=== PATIENT | female | born 1955 | race Caucasian/White ===

== ENCOUNTER 2021-11-16 08:10 | Emergency (ER) | payer MEDICARE, SELFPAY ==
--- NOTE | ~2021-11-16 | XR_ITS ---
EXAMINATION: XR chest 2V DATE: 11/16/2021 08:51 INDICATION: One week of cough and fever TECHNIQUE: frontal and lateral views of the chest were obtained. COMPARISON: None FINDINGS: Elevation of the left hemidiaphragm. Airspace opacities in the right upper lobe abutting the fissures which is concerning for pneumonia. No pleural effusion or pneumothorax. The cardiomediastinal silhou ette is normal. Mild thoracic and upper lumbar spondylosis. IMPRESSION: 1. Right upper lobar opacities concerning for pneumonia. Recommend radiographic follow-up to resoluti on. Reviewed, dictated and finalized at location A. IMPRESSION: 1. Right upper lobar opacities concerning for pneumonia. Recommend radiographic follow-up to resolution.
--- NOTE | 2021-11-16 08:14 | ED.URI ---
HPI - URI/Sore Throat General Chief Complaint: Upper Respiratory Infection Stated Complaint: cough, insomnia, fever, dizziness Time Seen by Provider: 11/16/21 08:33 Source: patient, RN notes reviewed and old records reviewed Mode of arrival: ambulatory Limitations: no limitations History of Present Illness HPI Narrative: 66-year-old female presents to the [facility] with complaints of cough, fevers. Patient reports cough for 2 weeks. 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 Has tried a couple of [id number] products with no relief. Related Data Home Medications Medication Instructions Recorded Confirmed hydrochlorothiazide 12.5 mg capsule 12.5 mg PO DAILY 06/09/20 11/16/21 lisinopril 2.5 mg tablet 2.5 mg PO DAILY 06/09/20 11/16/21 lovastatin 10 mg tablet 10 mg PO DAILY 06/09/20 11/16/21 paroxetine HCl 20 mg tablet 20 mg PO DAILY 11/16/21 11/16/21 Allergies Allergy/AdvReac Type Severity Reaction Status Date / Time erythromycin base Allergy Unknown Palpitation Verified 06/09/20 13:08 s Review of Systems Review of Systems: All systems reviewed & are unremarkable except as noted in HPI and below Constitutional: Constitutional: Reports no additional constitutional complaints, Denies chills and Denies fever(s) Eyes: Eyes: Reports no additional eye complaints ENT: Reports as per HPI Cardiovascular: Cardiovascular: Reports no additional cardiovascular complaints Respiratory: Respiratory: Reports as per HPI and Reports cough Gastrointestinal: Gastrointestinal: Reports no additional gastrointestinal complaints Musculoskeletal: Musculoskeletal: Reports no additional musculoskeletal complaints Integumentary/Breasts: Skin/Breast: Reports system reviewed and no additional complaints, except as docu Neurologic: Reports system reviewed and no additional complaints, except as documented Psychiatric: Psychiatric: Reports no additional psychiatric complaints Allergic/Immunologic: Allergic/Immunologic: Reports no additional allergic/immunologic complaints [facility] Past Medical History Medical History (Updated 11/16/21 @ 09:02 by Tabatha Krause APRN) Anxiety Depression High cholesterol History of 3 spontaneous abortions Hypertension Obstructive sleep apnea Surgical History Surgical History History of 2 sections S/P breast biopsy S/P conization of cervix x2 S/P dilation and curettage x3 Total knee replacement status Family History Family History Father Hypertension Grandparent Family history of malignant neoplasm of cervix Sibling Family history of malignant neoplasm of breast in first degree relative Social History Social History Smoking status: Never smoker Second hand tobacco smoke exposure: No Alcohol intake: current Comments At the time of my signature, I reviewed and agree with the nursing past medical, surgical, social, and family history. There is no relevant family history pertinent to the patient complaint. Exam Const: General: healthy appearing, no acute distress and alert Nutritional Appearance: well nourished Orientation/consciousness: patient oriented x3 Limitations: no limitations HENMT: Head: normal to inspection Ears: external ears normal, TM's normal bilaterally and EAC's normal General nose exam: Normal external nose present and Normal nares present Face and sinus: normal facial exam Mouth: Yes Normal oral and palatal mucosa present, Yes lip normal and Yes moist mucous membranes Throat: posterior oropharynx normal and uvula midline Eyes: General: appearance normal, both eyes and all related structures Conjunctivae: conjunctivae normal Pupils: Equal, round and reactive pupils present Neck: Neck: normal visual
[2021-11-16 08:26] VITALS: BP 153/66; PULSE 94; RESP 18; TEMP 38.4; O2SAT 97
[2021-11-16 08:59] VITALS: TEMP 38.4
[2021-11-16] MEDS: ACETAMINOPHEN 500 MG TABLET 1000 MG PO (08:59)
[2021-11-16 09:10] VITALS: BP 148/96; PULSE 94; RESP 18; TEMP 38.4; O2SAT 98
== END 2021-11-16 09:10 | disposition home or self-care (01) ==
PROVIDERS: Emergency Provider Nurse Practitioner
DX: J10.00 Influenza due to other identified influenza virus with unspecified type of pneumonia (principal); Z20.822 Contact with and (suspected) exposure to COVID-19; E78.00 Pure hypercholesterolemia, unspecified; I10 Essential (primary) hypertension; G47.33 Obstructive sleep apnea (adult) (pediatric); F41.9 Anxiety disorder, unspecified; F32.A Depression, unspecified
CPT/HCPCS: 71046; 87426; 87804; 99213; A9270; C9803; G0463

== ENCOUNTER 2024-05-04 18:37 | Emergency (ER) | payer MEDICARE, SELFPAY ==
[2024-05-04] VITALS (9 sets, daily range): BP systolic 106–129; BP diastolic 60–83; PULSE 76–94; RESP 15–20; TEMP 36.8–37; O2SAT 96–99
--- NOTE | ~2024-05-04 | XR_ITS ---
CHEST RADIOGRAPH CLINICAL HISTORY: weakness, n/v . COMPARISON: 11/16/2021 TECHNIQUE: Single portable view of the chest. FINDINGS The cardiomediastinal silhouette is unremarkable. The lungs are clear. IMPRESSION: No focal infiltrate or effusion. Reviewed, dictated and finalized at location A.
--- OUTSIDE RECORDS SUMMARY | 2024-05-04 18:40 | XMS_ITS | Encounter Summary ---
Author Organization [facility] Address [address] [place] [address] Care Team Providers Care Licensed Mass Real Estate Appraiser Name Role Phone Rodrigues, Woody DO Unavailable Rodrigues, Woody DO Unavailable Rodrigues, Woody DO Primary Care Provider [phone] Reason for Referral * Radiology Services (Routine) - Pending Review Specialty Diagnoses / Procedures Referred By Contac t Referred To Contact Mammography Diagnoses Abnormal findings on diagnostic imaging of breast Procedures Mammo Right Diagnostic W Rebecca Oscar APRN-CNP [address] [place] [address] [facility] [address] [address] Referral ID Status Reason Start Date Expiration Date V isits Requested Visits Authorized [id number] Pending Review 03/15/2024 03/15/2025 1 1 Reason for Visit * Radiology Services (Routine) - Pending Review Specialty Diagnoses / Procedures Referred By Contac t Referred To Contact Mammography Diagnoses Abnormal findings on diagnostic imaging of breast Procedures Mammo Right Diagnostic W Rebecca Oscar APRN-CNP [address] [place] [address] [facility] [address] [address] Referral ID Status Reason Start Date Expiration Date V isits Requested Visits Authorized [id number] Pending Review 03/15/2024 03/15/2025 1 1 Encounter Details Date Type Department Care Team (Latest Contact Info) Description 05/03/2024 8:47 AM CDT Hospital Encounter [facility] Health Breast Care [address] [address] Rebecca Corea, SUPERVISORY TRAINING SPECIALIST-[facility] [address] [place] [address] Discharge Disposition: Home or Self Care Social History Tobacco Use Types Packs/Day Years Used Date Smoking Tobacco: Never Smokeless Tobacco: Never Alcohol Use Standard Drinks/Week Comments Not Currently 0 (1 standard drink = 0.6 oz pur e alcohol) 12 drinks a year PHQ-2 Answer Date Recorded Patient Health Questionnaire-2 Score 0 03/02/2024 Sex and Gender Information Value Date Recorded Sex Assigned at Not on file Gender Identity Not on file Sexual Orientation Not on file documented as of this encounter Medications at Time of Discharge Medication Sig Dispensed Refills Start Date End Date CPAP Use as directed diclofenac sodium EC (Voltaren) 75 MG tablet Take 1 (one) tablet by mouth as needed folic acid (Folvite) 1 MG tablet Take 1 (one) tablet by mouth once daily 02/02/2024 hydroCHLOROthiazide (Hydrodiuril) 25 MG tabletIndications:Essenti al hypertension Take 1 (one) tablet by mouth once daily 90 tablet 1 03/02/2024 hydroxychloroquine (Plaquenil) 200 MG tablet Take 1 (one) tablet by mouth once daily 01/19/2024 hydrOXYzine HCl (Atarax) 50 MG tabletIndications:FOZIA (generalized anxiety disorder) Take 1 (one) tablet by mouth once daily as needed (Anxiety) 30 tablet 04/29/2024 lisinopril (Prinivil; Zestril) 10 MG tabletIndications:Essenti al hypertension Take 1 (one) tablet by mouth once daily 90 tablet 1 03/02/2024 lovastatin (Mevacor) 10 MG tabletIndications:Hyperch olesterolemia Take 1 (one) tablet by mouth at bedtime 90 tablet 1 03/02/2024 methotrexate 2.5 MG tablet Take 1 (one) tablet by mouth once 02/23/2024 PARoxetine (Paxil) 20 MG tabletIndications:FOZIA (generalized anxiety disorder) Take 0.5 (one-half) tablet by mouth once daily 90 tablet 1 03/05/2024 predniSONE (Deltasone) 5 MG tablet Take 1 (one) tablet by mouth once daily 02/28/2024 documented as of this encounter Plan of Treatment Upcoming Encounters Date Type Department Care Team (Late st Contact Info) Description 05/06/2024 3:20 PM CDT Office Visit [facility] [address] [place] [address] ChachoIsa Debbie, SUPERVISORY TRAINING SPECIALIST-[employer] [address] [place] [phone] 08/17/2024 1:00 PM CDT Office Visit [facility] [address] [place] [address] Woody Rodrigues DO [address] [place] [phone] documented as of this encounter Procedures Procedure Name Priority Date/Time Associated Diagnosis Comments MAMMO RIGHT DIAGNOSTIC W JAYLA Routine 05/03/2024 9:16 AM CDT Abnormal findings on diagnostic imaging of breast documented in this encounter Results * Mammo Right Diagnostic W Jayla (05/03/2024 9:16 AM CDT) Anatomical Region Laterality Modality Breast Right Mammography 05/03/2024 9:30 AM CDT Impressions 05/03/2024 3:03 PM CDT IMPRESSION: Screen detected right breast focal asymmetry represents a benign cluster of cysts. OVERALL FINAL ASSESSMENT: BI-RADS Category 2: Benign. Annual screening mammography is recommended. > Interpreting Provider: Jerzy Qureshi MD on 05/03/2024 3:03 PM Narrative 05/03/2024 3:03 PM CDT EXAMINATION: RIGHT UNILATERAL DIGITAL DIAGNOSTIC MAMMOGRAM AND DIGITAL BREAST TOMOSYNTHESIS; RIGHT BREAST SONOGRAM HISTORY: 68 year-old asymptomatic woman presents for evaluation of screening detected right breast focal asymmetry. COMPARISON: Comparison is made to mammograms dating back to 2014. TECHNIQUE: Full field digital mammographic views of the RIGHT breast were performed, including computer aided detection (CAD) and digital breast tomosynthesis (DBT). Directed ultrasound evaluation of the RIGHT breast was performed by a trained security operations manager and by Dr. Qureshi. BREAST PARENCHYMAL COMPOSITION: There are scattered areas of fibroglandular density. MAMMOGRAM FINDINGS: Additional views of the right breast were obtained which confirm the presence of a subtle focal asymmetry in the outer right breast at middle to posterior depth. There is no suspicious mass, architectural distortion, or calcification. SONOGRAM FINDINGS: Ultrasound evaluation of the outer right breast is performed. At the 9:00 position 11 cm from the nipple, there is a 9 mm benign cluster of cysts. This corresponds to the focal asymmetry seen mammographically. There is no suspicious cystic or solid mass in the visualized right breast there is a benign lymph node at the 10:00 position 11 cm from the nipple. Rebecca Corea SUPERVISORY TRAINING SPECIALIST-[employer] MAMMO ORDERAB LES documented in this encounter Visit Diagnoses Diagnosis Abnormal findings on diagnostic imaging of breast Other (abnormal) findings on radiological examination of breast documented in this encounter Care Teams Licensed [employer] Real Estate Appraiser Relationship Specialty Start Date End Date Woody Rodrigues DO [address] [place] [phone] PCP - Attributed-[facility] 12/19/23 Woody Rodrigues DO [address] [place] [address] PCP - Attributed-[facility] P4P 01/18/24 Woody Rodrigues DO [address] [place] [address] PCP - General Family Medicine 03/02/24 documented as of this encounter
--- OUTSIDE RECORDS SUMMARY | 2024-05-04 18:40 | XMS_ITS | Encounter Summary ---
Author Organization [facility] Address [address] [place] [address] Care Team Providers Care Front Maker Lockstitch Name Role Phone Rodrigues, Woody DO Unavailable Rodrigues, Woody DO Unavailable Rodrigues, Woody DO Primary Care Provider [phone] Reason for Referral * Radiology Services (Routine) - Pending Review Specialty Diagnoses / Procedures Referred By Contac t Referred To Contact Ultrasound Diagnoses Abnormal findings on diagnostic imaging of breast Procedures US BREAST RIGHT LTD Rebecca Corea APRN-DEHYDRATOR [address] [place] [address] [facility] [address] [place] [id number] Referral ID Status Reason Start Date Expiration Date V isits Requested Visits Authorized [id number] Pending Review 03/15/2024 03/15/2025 1 1 Reason for Visit * Radiology Services (Routine) - Pending Review Specialty Diagnoses / Procedures Referred By Conthollie t Referred To Contact Ultrasound Diagnoses Abnormal findings on diagnostic imaging of breast Procedures US BREAST RIGHT LTD Rebecca Corea APRN-DEHYDRATOR [address] [place] [address] [facility] [address] [facility] [address] [place] [address] Referral ID Status Reason Start Date Expiration Date V isits Requested Visits Authorized [id number] Pending Review 03/15/2024 03/15/2025 1 1 Encounter Details Date Type Department Care Team (Latest Contact Info) Description 05/03/2024 8:48 AM CDT - 05/03/2024 11:59 PM CDT Hospital Encounter [facility] Imaging Services - Ultrasound [address] [facility] [address] [place] [address] Rebecca Corea, COMMUNICATIONS OFFICER-DEHYDRATOR [address] [place] [address] Discharge Disposition: Home or Self Care Social [...] Description 05/06/2024 3:20 PM CDT Office Visit [facility] [address] [place] [address] Isa Flor Debbie, COMMUNICATIONS OFFICER-DEHYDRATOR [address] [place] [address] 08/17/2024 1:00 PM CDT Office Visit [facility] [address] [place] [address] Woody Rodrigues DO [address] [place] [phone] documented as of this encounter Procedures Procedure Name Priority Date/Time Associated Diagnosis Comments US BREAST RIGHT LTD Routine 05/03/2024 1 0:01 AM CDT Abnormal findings on diagnostic imaging of breast documented in this encounter Results * US BREAST RIGHT LTD (05/03/2024 10:01 AM CDT) Anatomical Region Laterality Modality Breast Right Ultrasound 05/03/2024 9:30 AM CDT Impressions 05/03/2024 3:03 [...] RIGHT breast was performed by a trained trip follower and by Dr. Qureshi. BREAST PARENCHYMAL COMPOSITION: [...] 11 cm from the nipple. Rebecca Corea COMMUNICATIONS OFFICER-DEHYDRATOR US ORDERABLES documented in this encounter Visit Diagnoses Diagnosis Abnormal findings on diagnostic imaging of breast Other (abnormal) findings on radiological examination of breast documented in this encounter Care Teams Front Maker Lockstitch Relationship Specialty Start Date End Date Woody Rodrigues DO [address] [place] [phone] PCP - Attributed-[facility] 12/19/23 Woody Rodrigues DO [address] [place] [address] PCP - Attributed-[facility] P4P 01/18/24 Woody Rodrigues DO [address] [place] [address] PCP - General Family Medicine 03/02/24 documented as of this encounter
--- OUTSIDE RECORDS SUMMARY | 2024-05-04 18:40 | XMS_ITS | Patient Health Record ---
Author Organization [facility] Address [address] [place], [place] [address] Care Team Providers Care Divider Operator Name Role Phone Ciro Back Primary Care Provider Ciro Back MD [phone] ALLERGIES Allergen (clinical drug ingredient) Drug/Non Drug Allergy documented on EMR Reaction Allergy Type Onset Date Status erythromycin Erythromycin Unknown Drug Allergy A ctive REASON FOR REFERRAL No Information MEDICATIONS Medication SIG (Take, Route, Fr equency, Duration) Notes Start Date End Date Status PARoxetine HCl Activ e hydroCHLOROthiazide Active Lisinopril Active Lovastatin Active SOCIAL HISTORY Sex Assigned At : Social History Observation Description Sex Assigned At Unknown PROBLEMS Problem Type ICD Code Onset Dates Problem Status W/U Status Risk SNOMED Code Notes Problem Bilateral primary osteoarthritis of knee (M17.0) Active confirmed Osteoarthritis of knee (227921124) Problem Primary osteoarthritis of knees, bilateral (M17.0) Active confirmed Bilateral arthritis of knees (5302767173471912) Problem Primary osteoarthritis of right knee (M17.11) Active confirmed Osteoarthritis of knee (018540771) Problem Unilateral primary osteoarthritis, right knee (M17.11) Active confirmed Primary osteoarthritis (365010304) Problem Aftercare following joint replacement surgery (Z47.1) Active confirmed History of musculoskeletal operation (337357994) Problem Presence of total right knee joint prosthesis (Z96.651) Active confirmed 963829943145 Problem Unilateral primary osteoarthritis, left knee (M17.12) Active confirmed 586413751168915 Problem Primary osteoarthritis of left knee (M17.12) Active confirmed 544591721 Problem Primary osteoarthritis of left hip (M16.12) Active confirmed Localized, primary osteoarthritis of the pelvic region and thigh (993899996) PLAN OF TREATMENT Pending Test Test Name Order Date X ray : Knee, left 3 views 04/28/2017 X ray : Knee, left 3 views 03/22/2015 X ray : Knee, right 3 views 09/10/2017 X ray : Knee, right 3 views 11/10/2017 X ray : Knee, right 3 views 03/22/2015 X ray : Knee, right 3 views 04/28/2017 Insurance Providers Payer Name Payer Address Payer Phone Subscriber Number Group Number Insured Name Patient Relationship to Insured Coverage Start Date Coverage End Date [facility] [address] [address] [place] [address] [id number] Vaishnavi Morataya Self - patient is the insured MEDICATIONS ADMINISTERED Medication Instructions Date of Administration Dosage Notes Betamethasone/ sodium phosphate 6mg 03/22/2015 R KNEE Betamethasone/ sodium phosphate 6mg 03/22/2015 L KNEE Betamethasone/ sodium phosphate 6mg 09/20/2015 R KNEE Betamethasone/ sodium phosphate 6mg 09/20/2015 Betamethasone/ sodium phosphate 6mg 12/20/2015 R KNEE Betamethasone/ sodium phosphate 6mg 12/20/2015 L KNEE Betamethasone/ sodium phosphate 6mg 04/26/2016 Bilateral Knees R/L Betamethasone/ sodium phosphate 6mg 07/17/2016 Betamethasone/ sodium phosphate 6mg 07/17/2016 Betamethasone/ sodium phosphate 6mg 04/28/2017 Betamethasone/ sodium phosphate 6mg 04/28/2017 Betamethasone/ sodium phosphate 6mg 11/10/2017 Betamethasone/ sodium phosphate 6mg 02/02/2018 Betamethasone/ sodium phosphate 6mg 05/04/2018 Betamethasone/ sodium phosphate 6mg 10/10/2020 Betamethasone/ sodium phosphate 6mg 01/18/2021 Betamethasone/ sodium phosphate 6mg 08/28/2021 Betamethasone/ sodium phosphate 6mg 07/10/2022 MEDICAL (GENERAL) HISTORY Surgical History Surgery Date(Month/Year) section 1991, 1995 dilatation and curettage 1989,94,95 Hospitalization History Reason Date(Month/Year) Same as surgeries Same as surgical history
--- OUTSIDE RECORDS SUMMARY | 2024-05-04 18:40 | XMS_ITS | Clinical Summary ---
Author Organization [facility] Address [address] [place] [address] Care Team Providers Care Field Kiln Burner Name Role Phone Rodrigues, Woody DO Unavailable Rodrigues, Woody DO Unavailable Rodrigues, Woody DO Primary Care Provider [phone] Source Comments [facility],non-owned Affiliates and Associated Physician Practices is amultiple site organization consisting of ambulatory clinics and hospital sitesin [place], [place], [place] and [place]. This disclosure is being madepursuant to the Care Everywhere program and may not contain all information available regarding this patient. Last updated 17.[facility] Allergies Active Allergy Reactions Criticality Noted Date Comments Erythromycin Nausea and/or Vomiting 08/19/2013 Medications * Be aware that medications may not be up to date on this document. Alwaysverify current medications with the patient. Medication Sig Dispensed Refills Start Date End Date Status diclofenac sodium EC (Voltaren) 75 MG tablet Take 1 (one) tablet by mouth as needed Active CPAP Use as directed Active folic acid (Folvite) 1 MG tablet Take 1 (one) tablet by mouth once daily 02/02/2024 Active hydroxychloroquine (Plaquenil) 200 MG tablet Take 1 (one) tablet by mouth once daily 01/19/2024 Active methotrexate 2.5 MG tablet Take 1 (one) tablet by mouth once 02/23/2024 Active predniSONE (Deltasone) 5 MG tablet Take 1 (one) tablet by mouth once daily 02/28/2024 Active lisinopril (Prinivil; Zestril) 10 MG tabletIndications:Ess ential hypertension Take 1 (one) tablet by mouth once daily 90 tablet 1 03/02/2024 Active hydroCHLOROthiazide (Hydrodiuril) 25 MG tabletIndications:Ess ential hypertension Take 1 (one) tablet by mouth once daily 90 tablet 1 03/02/2024 Active lovastatin (Mevacor) 10 MG tabletIndications:Hyp ercholesterolemia Take 1 (one) tablet by mouth at bedtime 90 tablet 1 03/02/2024 Active PARoxetine (Paxil) 20 MG tabletIndications:FOZIA (generalized anxiety disorder) Take 0.5 (one-half) tablet by mouth once daily 90 tablet 1 03/05/2024 Active hydrOXYzine HCl (Atarax) 50 MG tabletIndications:FOZIA (generalized anxiety disorder) Take 1 (one) tablet by mouth once daily as needed (Anxiety) 30 tablet 04/29/2024 Active Active Problems Problem Noted Date Diagnosed Date FOZIA (generalized anxiety disorder) 03/03/2024 Essential hypertension 03/03/2024 Hypercholesterolemia 03/03/2024 Arthritis of both knees 03/02/2024 Prediabetes 03/02/2024 Obesity, morbid 03/02/2024 SLE (systemic lupus erythematosus related syndro me) 12/29/2023 Primary osteoarthritis of left knee 04/23/2023 Encounters Date Type Department Care Team Description 05/04/2024 Travel 05/04/2024 Telephone [facility] - Family Medicine [address] [place] [address] Bertha Pisano, MARCEL Cough; Medication Problem 05/03/2024 8:48 AM CDT - 05/03/2024 11:59 PM CDT Hospital Encounter [facility] Imaging Services - Ultrasound [address] [place] [address] [address] [place] [address] Rebecca Corea, POWER LINEMAN-ASSISTANT THERAPY AIDE Discharge Disposition: Home or Self Care 05/03/2024 8:47 AM CDT Hospital Encounter [facility] Breast Care [address] [place] [address] [address] [place] [address] Rebecca Corea, POWER LINEMAN-ASSISTANT THERAPY AIDE Discharge Disposition: Home or Self Care 04/29/2024 Orders Only [facility] [address] [place] [address] Woody Rodrigues DO FOZIA (generalized anxiety disorder) 04/29/2024 Telephone [facility] [address] [place] [address] Woody Rodrigues DO Anxiety 03/24/2024 Patient Outreach [facility] - Care Coordination [address] [place] [address] Raya Tenorio Outreach Preventive Care 03/12/2024 2:57 PM ELECTRIC MOTOR ASSEMBLER AND TESTER - 03/12/2024 11:59 PM ELECTRIC MOTOR ASSEMBLER AND TESTER Hospital Encounter [facility] Breast Care [address] [facility] [address] [place] [address] Discharge Disposition: Home or Self Care 03/12/2024 2:57 PM ELECTRIC MOTOR ASSEMBLER AND TESTER - 03/12/2024 11:59 PM ELECTRIC MOTOR ASSEMBLER AND TESTER Hospital Encounter [facility] Breast Care [address] [facility] [address] [place] [address] Discharge Disposition: Home or Self Care 03/12/2024 2:56 PM ELECTRIC MOTOR ASSEMBLER AND TESTER Hospital Encounter [facility] Imaging Services - Radiology [address] [facility] [address] [place] [address] Discharge Disposition: Home or Self Care 03/05/2024 Orders Only [facility] [address] [place] [address] Woody Rodrigues DO FOZIA (generalized anxiety disorder) 03/05/2024 Telephone [facility] [address] [place] [address] Woody Rodrigues DO Medication Problem 03/02/2024 2:20 PM ELECTRIC MOTOR ASSEMBLER AND TESTER Office Visit [facility] [address] [place] [address] Woody Rodrigues DO Annual physical exam (Primary Dx); Prediabetes; Obesity, morbid (HCC); Systemic lupus erythematosus, unspecified SLE type, unspecified organ involvement status (HCC); Essential hypertension; Hypercholesterolemi a; FOZIA (generalized anxiety disorder) from Last 3 Months Immunizations Name Administration Dates Next Due INFLUENZA VACCINE, TRIV. (AF LURIA, FLUZONE TRIVALENT; 6MO+) (IIV3) 02/14/2012 Covid Pfizer primary monovalent 12+ yr 0.3mL Pur ple cap 11/15/2020 INFLUENZA VACCINE, HIGH-DOSE , QUADR. (FLUZONE HIGH-DOSE QUADRIVALENT; 65Y+), 0.7 ML (HD-IIV4) 11/24/2020 INFLUENZA VACCINE, QUADR. (F LUZONE; FLULAVAL; FLUARIX; AFLURIA QUADRIVALENT; 6MO+), 0.5 ML (IIV4) 11/07/2019 Family History Medical History Relation Name Comments Cancer - Breast Cousin Cancer - Breast Sister Relation Name Status Comments Cousin Sister Alive Social History Tobacco Use Types Packs/Day Years [...] on file Sexual Orientation Not on file Last Filed Vital Signs Vital Sign Reading Time Taken Comments Blood Pressure 100/62 03/02/2024 2:36 PM ELECTRIC MOTOR ASSEMBLER AND TESTER Pulse 74 03/02/2024 2:36 PM ELECTRIC MOTOR ASSEMBLER AND TESTER Temperature 36.6 C (97.9 F) 03/02/2024 2:36 PM ELECTRIC MOTOR ASSEMBLER AND TESTER Respiratory Rate 18 08/19/2013 12:58 PM CDT Oxygen Saturation 98% 03/02/2024 2:36 PM ELECTRIC MOTOR ASSEMBLER AND TESTER Inhaled Oxygen Concentration - - Weight 103 kg (227 lb) 03/12/2024 3:08 PM ELECTRIC MOTOR ASSEMBLER AND TESTER Height 162.6 cm (5' 4 ) 03/12/2024 3:08 PM ELECTRIC MOTOR ASSEMBLER AND TESTER Body Mass Index 38.96 03/12/2024 3:08 PM ELECTRIC MOTOR ASSEMBLER AND TESTER Plan of Treatment Upcoming Encounters Date Type Department Care Team (Late st Contact Info) Description 05/06/2024 3:20 PM CDT Office Visit [facility] - Family Medicine [address] [place] [address] Isa Flor, POWER LINEMAN-ASSISTANT THERAPY AIDE [address] [place] [phone] 08/17/2024 1:00 PM CDT Office Visit [facility] - Family Medicine [address] [place] [address] RodriguesWoody hammond DO [address] [place] [address] Health Maintenance Due Date Last Done Comments COLOGUARD (AGES 45-75) - COLON CA SCREENING [address] COLONOGRAPHY - COLON CA SCREENING 1955 FIT - COLON CA SCREENING 1955 FLEX SIG - COLON CA SCREENING 1955 HEPATITIS C SCREENING 05/06/1973 DTAP/TDAP/TD VACCINES (1 - Tdap) 05/10/1974 PNEUMOCOCCAL VACCINE 50+ (1 of 1 - PCV) 05/10/2005 ZOSTER VACCINE (1 of 2) 05/10/2005 COVID-19 VACCINE (4 - season) 2023 11/15/2020, 04/28/2020, 04/07/2020 INFLUENZA VACCINE (#1) 2023 , 11/07/2019, 02/14/2012 MEDICARE AWV CALENDAR YEAR 2024 MAMMOGRAM 03/12/2026 03/12/2024, 06/2023, 10/05/2021, Additional history exists SCREENING FOR DIABETES 03/02/2027 03/02/2024, 2024 Respiratory Syncytial Virus (RSV) Vaccine Pt: or over 60 yrs (1 - 1-dose 75+ series) 05/10/2030 COLONOSCOPY - COLON CA SCREENING 08/07/2031 08/06/2021 Colorectal Cancer Screening 08/07/2031 DEPRESSION SCREENING Completed 03/02/2024, 04/21/19 BONE DENSITY TESTING Completed 03/12/2024, 08/09/2013, 02/29/2008 HEPATITIS B VACCINE Aged Out No longe r eligible based on patient's age to complete this topic HIB VACCINE Aged Out No longer eligi ble based on patient's age to complete this topic HPV VACCINE Aged Out No longer eligi ble based on patient's age to complete this topic MENINGOCOCCAL (Group B) VACCINE SHARED DECISION-MAKING Aged Out No longer eligible based on patient's age to complete this topic MENINGOCOCCAL GROUPS A/C/Y/W VACCINE Aged Out No longer eligible based on patient's age to complete this topic Procedures Procedure Name Priority Date/Time Associated Diagnosis Comments US BREAST RIGHT LTD Routine 05/03/2024 1 0:01 AM CDT Abnormal findings on diagnostic imaging of breast MAMMO RIGHT DIAGNOSTIC W RILEY Routine 05/03/2024 9:16 AM CDT Abnormal findings on diagnostic imaging of breast DEXA BONE DENSITY AXIAL SKELETON Routine 03/12/2024 3:51 PM ELECTRIC MOTOR ASSEMBLER AND TESTER Asymptomatic postmenopausal status XR CHEST 2VW Routine 03/12/2024 3:36 PM ELECTRIC MOTOR ASSEMBLER AND TESTER Lumbar pain Systemic lupus erythematosus (SLE) in adult (HCC) Ankylosing spondylitis, unspecified site of spine (HCC) High risk medications (not anticoagulants) long-term use MAMMO BILAT SCREENING W RILEY Routine 03/12/2024 3:10 PM ELECTRIC MOTOR ASSEMBLER AND TESTER Encounter for screening mammogram for breast cancer TSH REFLEX FREE T4 Routine 03/02/2024 3: 26 PM ELECTRIC MOTOR ASSEMBLER AND TESTER Annual physical exam HEMOGLOBIN A1C Routine 03/02/2024 3:26 PM ELECTRIC MOTOR ASSEMBLER AND TESTER Annual physical exam LIPID PROFILE Routine 03/02/2024 3:26 PM ELECTRIC MOTOR ASSEMBLER AND TESTER Annual physical exam COMPREHENSIVE METABOLIC PANEL Routine 03/02/2024 3:26 PM ELECTRIC MOTOR ASSEMBLER AND TESTER Annual physical exam CBC W AUTO DIFFERENTIAL Routine 03/02/2024 3:26 PM ELECTRIC MOTOR ASSEMBLER AND TESTER Annual physical exam from Last 3 Months Results * US BREAST RIGHT LTD (05/03/2024 [...] RIGHT breast was performed by a trained warehouse representative and by Dr. Qureshi. BREAST PARENCHYMAL COMPOSITION: [...] 11 cm from the nipple. Rebecca Corea POWER LINEMAN-ASSISTANT THERAPY AIDE US ORDERABLES * Mammo Right Diagnostic W Riley (05/03/2024 9:16 AM CDT) Anatomical Region Laterality [...] RIGHT breast was performed by a trained warehouse representative and by Dr. Qureshi. BREAST PARENCHYMAL COMPOSITION: [...] 11 cm from the nipple. Rebecca Corea POWER LINEMAN-ASSISTANT THERAPY AIDE MAMMO ORDERAB LES * DEXA BONE DENSITY AXIAL SKELETON (03/12/2024 3:51 PM ELECTRIC MOTOR ASSEMBLER AND TESTER) Anatomical Region Laterality Modality Mammography 03/12/2024 4:08 PM ELECTRIC MOTOR ASSEMBLER AND TESTER Narrative 03/12/2024 4:09 PM ELECTRIC MOTOR ASSEMBLER AND TESTER BONE MINERAL DENSITY STUDY INDICATION: Ovarian failure FINDINGS: The average bone mineral density from L1 to L4 is 1.545 g/cm2. T-score is 2.8 which is the standard deviations (SD) of the mean for the young adult. The Z-score is 3.3 which is the standard deviations for the mean for age matched control. The average bone mineral density of the totalright neck hip is 1.020 g/cm2. T-score is -0.1. Z-score is 0.8 The 10 year probability of fracture major osteoporotic: 6.4%. Hip: 0.3%.. ASSESSMENT: The above findings represent no significant increased risk of fracture through the spine and femur. WORLD HEALTH ORGANIZATION DEFINITIONS OSTEOPENIA = -1 TO -2.5 SD BELOW T-SCORE OSTEOPOROSIS = LESS THAN -2.5 SD BELOW T-SCORE 1. No significant- < 1 SD below T score 2. Mild - 1 -2.0 SD below T-score 3. Moderate - 2 -2.5 SD below T-score 4. Significant - > 2.5 SD below T-score > Interpreting Provider: Jasson Altamirano MD on 03/12/2024 4:09 PM Procedure Note Jasson Altamirano MD - 03/12/2024 BONE MINERAL DENSITY STUDY INDICATION: Ovarian failure FINDINGS: The average bone mineral density from L1 to L4 is 1.545 g/cm2. T-scoreis 2.8 which is the standard deviations (SD) of the mean for the youngadult. The Z-score is 3.3 which is the standard deviations for the mean forage matched control. The average bone mineral density of the totalright neck hip is 1.020g/cm2. T-score is -0.1. Z-score is 0.8 The 10 year probability of fracture major osteoporotic: 6.4%. Hip: 0.3%.. ASSESSMENT: The above findings represent no significant increased riskof fracture through the spine and femur. WORLD HEALTH ORGANIZATION DEFINITIONS OSTEOPENIA = -1 TO -2.5 SD BELOW T-SCORE OSTEOPOROSIS = LESS THAN -2.5 SD BELOW T-SCORE 1. No significant- < 1 SD below T score 2. Mild - 1 -2.0 SD below T-score 3. Moderate - 2 -2.5 SD below T-score 4. Significant - > 2.5 SD below T-score > Interpreting Provider: Jasson Altamirano MD on 03/12/2024 4:09 PM Rebecca Corea POWER LINEMAN-ASSISTANT THERAPY AIDE DEXA ORDERABL ES * XR Chest 2Vw (03/12/2024 3:36 PM ELECTRIC MOTOR ASSEMBLER AND TESTER) Anatomical Region Laterality Modality Chest Radiographic Nella ging 03/12/2024 3:44 PM ELECTRIC MOTOR ASSEMBLER AND TESTER Impressions 03/12/2024 3:44 PM ELECTRIC MOTOR ASSEMBLER AND TESTER IMPRESSION: No acute cardiopulmonary abnormalities. > Interpreting Provider: Gissel Ogden MD on 03/12/2024 3:44 PM Narrative 03/12/2024 3:44 PM ELECTRIC MOTOR ASSEMBLER AND TESTER PROCEDURE: XR CHEST 2VW DATE/TIME OF EXAM: 03/12/2024 3:36 PM CLINICAL INFORMATION: None relevant/not provided if blank. Indication: M54.50: Low back pain, unspecified M32.9: Systemic lupus erythematosus, unspecified ([facility]) M45.9: Ankylosing spondylitis of unspecified sites in spine ([facility]) Z79.899: Other terminal operations supervisor (current) drug therapy Additional History: COMPARISON: None. FINDINGS: Examination of the chest in PA and lateral views fails to reveal evidence of active infiltration or consolidation in either lung and there is no effusion or pneumothorax. The heart, aorta and diaphragm, and other mediastinal structures are normal in size, shape and position. The bony structures are unremarkable. Procedure Note Gissel Ogden MD - 03/12/2024 PROCEDURE: XR CHEST 2VW DATE/TIME OF EXAM: 03/12/2024 3:36 PM CLINICAL INFORMATION: None relevant/not provided if blank. Indication: M54.50: Low back pain, unspecified M32.9: Systemic lupus erythematosus, unspecified ([facility]) M45.9: Ankylosing spondylitis of unspecified sites in spine ([facility]) Z79.899: Other intermediate (current) drug therapy Additional History: COMPARISON: None. FINDINGS: Examination of the chest in PA and lateral views fails to revealevidence of active infiltration or consolidation in either lung and there is no effusion or pneumothorax. The heart, aorta and diaphragm, and other mediastinal structures are normal in size, shape and position. The bony structures are unremarkable. IMPRESSION: No acute cardiopulmonary abnormalities. > Interpreting Provider: Gissel Ogden MD on 03/12/2024 3:44 PM Lisa Garcia POWER LINEMAN-ASSISTANT THERAPY AIDE DIAGNOSTIC IMAG ING ORDERABLES * Mammo Bilat Screening W Riley (03/12/2024 3:10 PM ELECTRIC MOTOR ASSEMBLER AND TESTER) Anatomical Region Laterality Modality Breast Bilateral Mammography 03/12/2024 3:58 PM ELECTRIC MOTOR ASSEMBLER AND TESTER Impressions 03/12/2024 4:06 PM ELECTRIC MOTOR ASSEMBLER AND TESTER IMPRESSION: Question right breast focal asymmetry ASSESSMENT: BIRADS Category 0: Incomplete - Needs additional imaging evaluation. RECOMMENDATION: Right breast diagnostic mammography and possible targeted ultrasound. Thank you for allowing us to participate in the care of your patient. [facility] utilizes [employer] as a reminder system to notify patients of their next recommended mammogram. > Interpreting Provider: Isa Delvalle MD on 03/12/2024 4:06 PM Narrative 03/12/2024 4:06 PM ELECTRIC MOTOR ASSEMBLER AND TESTER EXAMINATION: Digital screening mammogram. Low-dose full-field digital breast tomosynthesis examination was performed with synthetic 2D images. Computer assisted detection was utilized. DATE: 03/12/2024 3:12 PM PRIOR: 2023 and prior mammograms dating back to 2020. BREAST PARENCHYMAL DENSITY: There are scattered areas of fibroglandular density. FINDINGS: No suspicious masses, areas of architectural distortion or microcalcifications are evident on synthetic 2D mammogram or tomosynthesis images in the left breast. There is a question focal asymmetry in the superficial outer right breast at mid depth approximately 10 cm from the nipple on CC slice 27 and MLO slice 7. Rebecca Corea POWER LINEMAN-ASSISTANT THERAPY AIDE MAMMO ORDERAB LES * TSH REFLEX FREE T4 (03/02/2024 3:26 PM ELECTRIC MOTOR ASSEMBLER AND TESTER) TSH 1.561 0.350 - 4.940 uIU/mL [facility] ACCOUNT BILL Blood BLOOD SPECIMEN / Unknown 03/02/2024 3:26 PM ELECTRIC MOTOR ASSEMBLER AND TESTER 03/02/2024 Narrative [facility] ACCOUNT BILL - 03/02/2024 11:06 PM ELECTRIC MOTOR ASSEMBLER AND TESTER Performed at: [address] [place] [address] [address] [place], [place] [id number] General House Worker: Dequan Toussaint [facility], Phone: [phone] Woody Rodrigues DO LAB - CHEMISTRY MAICO GERARD [facility] ACCOUNT BILL [address] [place] [address] * HEMOGLOBIN A1C (03/02/2024 3:26 PM ELECTRIC MOTOR ASSEMBLER AND TESTER) Hemoglobin A1c 5.6 <5.7 % [facility] ACCOUNT BILL Comment: AVERAGE GLUCOSE MG/DL BLOOD 114 mg/dL HbA1c Interpretation: Normal: < 5.7% Pre-diabetes: 5.7-6.4% Diabetes: Equal to or greater than 6.5% Test results diagnostic of diabetes should be repeated for c onfirmation. Treatment target values recommended by ADA and other clinica l organizations should be used to evaluate metabolic control in patients. This test should not replace glucose testing for patients wi th Type 1 diabetes, pediatric patients, or women. Falsely low HbA1c results may be observed in patients with c linical conditions that shorten erythrocyte life span or dec rease mean erythrocyte age such as the presence of unstable hemoglobin variants, elevated hemoglobin F level or other ca uses of hemolytic anemia. HbA1c may not accurately reflect glycemic control when clinical conditions that affect erythr ocyte survival are present. Severe Iron deficiency anemia m ay yield falsely high results. Hemoglobin A1c assay should not be used to diagnose or monitor diabetes in patients with malignancy, recent blood transfusion, chronic kidney or keaton er disease. This method may yield falsely low results when hemoglobin (HbF) exceeds 5% in the specimen. The [employer] Alinity assay for the measurement of HbA1c is a [facility] Glycohemoglobin Standardization Program (NGSP) certi fied method. Blood BLOOD SPECIMEN / Unknown 03/02/2024 3:26 PM ELECTRIC MOTOR ASSEMBLER AND TESTER 03/02/2024 Narrative [facility] ACCOUNT BILL - 03/02/2024 11:06 PM ELECTRIC MOTOR ASSEMBLER AND TESTER Performed at: [address] [place] [address] , [place], [place] [id number] General House Worker: Dequan Toussaint [facility], Phone: [phone] Woody Rodrigues DO LAB - CHEMISTRY MAICO GERARD [facility] ACCOUNT BILL [address] [place] [address] * (ABNORMAL) CBC WITH DIFFERENTIAL (03/02/2024 3:26 PM ELECTRIC MOTOR ASSEMBLER AND TESTER) WBC 3.3(L) 4.0 - 10.7 x10E9/L [facility] ACCOUNT BILL RBC 4.02 3.90 - 5.20 x10E12/L [facility] ACCOUNT BILL Hemoglobin 11.1(L) 11.9 - 15.8 g/dL [facility] ACCOUNT BILL Hematocrit 35.0 34.8 - 46.1 % [facility] ACCOUNT BILL MCV 87.1 80.0 - 98.0 fL [facility] ACCOUNT BILL MCH 27.6 26.7 - 33.6 pg [facility] ACCOUNT BILL MCHC 31.7 31.7 - 36.3 g/dL [facility] ACCOUNT BILL RDW 14.0 11.3 - 14.8 % [facility] ACCOUNT BILL Platelet Count 218 150 - 420 x10E9/L [facility] ACCOUNT BILL Comment:MPV (CS) 9.1 fL 7.8- 11.4 Granulocytes % 38.5(L) 41.0 - 74.0 % [facility] ACCOUNT BILL Lymphocytes % 43.7 17.0 - 47.0 % [facility] ACCOUNT BILL Monocytes % 13.8(H) 3.0 - 11.0 % [facility] ACCOUNT BILL Eosinophils % 2.5 0.0 - 7.0 % [facility] ACCOUNT BILL Basophils % 1.2 0.0 - 1.6 % [facility] ACCOUNT BILL Granulocytes Absolute 1.25(L) 1.60 - 7.50 x10E9/L [facility] ACCOUNT BILL Lymphocytes Absolute 1.42 1.00 - 4.40 x10E9/L [facility] ACCOUNT BILL Monocytes Absolute 0.45 0.15 - 1.00 x10E9/L [facility] ACCOUNT BILL Eosinophils Absolute 0.08 0.00 - 0.60 x10E9/L [facility] ACCOUNT BILL Basophils Absolute 0.04 0.00 - 0.13 x10E9/L [facility] ACCOUNT BILL Immature Granulocytes 0.3 0.0 - 1.0 % [facility] ACCOUNT BILL Blood BLOOD SPECIMEN / Unknown 03/02/2024 3:26 PM ELECTRIC MOTOR ASSEMBLER AND TESTER 03/02/2024 Narrative [facility] ACCOUNT BILL - 03/02/2024 11:06 PM ELECTRIC MOTOR ASSEMBLER AND TESTER Performed at: [address] [place], [place] [address] , [place], [place] [id number] General House Worker: Dequan Toussaint [facility], Phone: [phone] Woody Rodrigues DO LAB - HEMATOLOGY ORD ERABLES [facility] ACCOUNT BILL [address] [place] [address] * (ABNORMAL) COMPREHENSIVE METABOLIC PANEL (03/02/2024 3:26 PM ELECTRIC MOTOR ASSEMBLER AND TESTER) [facility] Glucose 92 70 - 99 mg/dL [facility] ACCOUNT BILL BUN 29(H) 7 - 26 mg/dL [facility] ACCOUNT BILL Creatinine 1.16(H) 0.57 - 1.11 mg/dL [facility] ACCOUNT BILL eGFR by CKD-EPI 51(L) >=90 mL/min/1.7 3 m2 [facility] ACCOUNT BILL Sodium 139 136 - 145 mmol/L [facility] ACCOUNT BILL Potassium 4.6 3.5 - 5.1 mmol/L [facility] ACCOUNT BILL Chloride 106 98 - 107 mmol/L [facility] ACCOUNT BILL CO2 26 22 - 29 mmol/L [facility] ACCOUNT BILL Calcium 9.4 8.4 - 10.4 mg/dL [facility] ACCOUNT BILL Protein Total 6.4 6.4 - 8.3 gm/dL [facility] ACCOUNT BILL Albumin 3.7 3.4 - 5.0 gm/dL [facility] ACCOUNT BILL Bilirubin Total 0.3 0.2 - 1.2 mg/dL [facility] ACCOUNT BILL Alkaline Phosphatase 70 40 - 150 U/L [facility] ACCOUNT BILL AST 10 5 - 34 U/L [facility] ACCOUNT BILL ALT 12 0 - 55 U/L [facility] ACCOUNT BILL Blood BLOOD SPECIMEN / Unknown 03/02/2024 3:26 PM ELECTRIC MOTOR ASSEMBLER AND TESTER 03/02/2024 Narrative [facility] ACCOUNT BILL - 03/02/2024 11:06 PM ELECTRIC MOTOR ASSEMBLER AND TESTER Performed at: [address] [place] [address] [place], [place] [id number] General House Worker: Dequan Toussaint [facility], Phone: [phone] Woody Rodrigues DO LAB - CHEMISTRY MAICO GERARD [facility] ACCOUNT BILL [address] [place] [address] * (ABNORMAL) LIPID PROFILE (LIPID PANEL) (03/02/2024 3:26 PM ELECTRIC MOTOR ASSEMBLER AND TESTER) Cholesterol 223(H) <200 mg/dL [facility] ACCOUNT BILL Triglycerides 91 <150 mg/dL [facility] ACCOUNT BILL HDL Cholesterol 58 >40 mg/dL [facility] ACCOUNT BILL VLDL Calculated 18 <=30 mg/dL [facility] ACCOUNT BILL LDL Calculated 147(H) <130 mg/dL [facility] ACCOUNT BILL Blood BLOOD SPECIMEN / Unknown 03/02/2024 3:26 PM ELECTRIC MOTOR ASSEMBLER AND TESTER 03/02/2024 Narrative [facility] ACCOUNT BILL - 03/02/2024 11:06 PM ELECTRIC MOTOR ASSEMBLER AND TESTER Performed at: [address] [place] [address] [address] [place] [place] [id number] General House Worker: Dequan Toussaint [facility], Phone: [phone] Woody Rodrigues DO LAB - CHEMISTRY MAICO GERARD [facility] ACCOUNT BILL [address] [place] [address] from Last 3 Months Care Teams Field Kiln Burner Relationship Specialty Start Date End Date Woody Rodrigues DO [address] [place] [address] PCP - Attributed-[facility] 12/19/23 Woody Rodrigues DO [address] [place] [phone] PCP - Attributed-[facility] 01/18/24 Woody Rodrigues DO [address] [place] [phone] PCP - General Family Medicine 03/02/24
--- OUTSIDE RECORDS SUMMARY | 2024-05-04 18:40 | XMS_ITS | Encounter Summary ---
Author Organization [facility] Address [address] [place] [address] Care Team Providers Care Aerospace Stress Engineer Name Role Phone Woody Rodrigues DO Unavailable Woody Rodrigues DO Unavailable Woody Rodrigues DO Primary Care Provider [phone] Encounter Details Date Type Department Care Team (Latest Contact Info) Description 05/04/2024 Travel Social History Tobacco Use Types Packs/Day Years [...] on file documented as of this encounter Plan of Treatment Upcoming Encounters Date Type Department Care Team (Late st Contact Info) Description 05/06/2024 3:20 PM CDT Office Visit [facility] - Family Medicine [address]23 [place] [address] Isa Flor, ROBERTO-KIT [address] [place] [address] 08/17/2024 1:00 PM CDT Office Visit [facility] Family Medicine [address]23 [place] [address] Woody Rodrigues DO [address] [place] [address] documented as of this encounter Visit Diagnoses Not on filedocumented in this encounter Care Teams Aerospace Stress Engineer Relationship Specialty Start Date End Date Woody Rodrigues DO [address] [place] [address] PCP - Attributed-[facility] 12/19/23 Woody Rodrigues DO [address] [place] [address] PCP - Attributed-[facility] P4P 01/18/24 Woody Rodrigues DO [address] [place] [address] PCP - General Family Medicine 03/02/24 documented as of this encounter
--- OUTSIDE RECORDS SUMMARY | 2024-05-04 18:40 | XMS_ITS | Encounter Summary ---
Author Organization [facility] Address [address] [facility] [address] [place] [address] Care Team Providers Care Knife Blade Polisher Name Role Phone Woody Rodrigues DO Unavailable Woody Rodrigues DO Unavailable Woody Rodrigues DO Primary Care Provider [phone] Reason for Visit * Reason Onset Date Comments Cough 05/04/2024 Medication Problem 05/04/2024 Encounter Details Date Type Department Care Team (Late st Contact Info) Description 05/04/2024 Telephone [facility] Medical [facility] - Family Medicine [address]23 [place], [place] [id number] Bertha Pisano RN Cough; Medication Problem Social History Tobacco Use Types Packs/Day Years [...] on file documented as of this encounter Miscellaneous Notes * Telephone Encounter - Bertha Pisano RN - 05/04/2024 10:37 AM CDT Scheduled patient with PEDIATRIC CLINICAL DIETICIAN 05/06 * Telephone Encounter - Woody Rodrigues DO - 05/04/2024 10:26 AM CDT She needs an appointment to discuss these issues. Thank you * Telephone Encounter - Bertha Pisano RN - 05/04/2024 10:14 AM CDT Patient called reporting that she was prescribed hydroxyzine 50 MG on 04/29 for her anxiety and wastold she can increase her paxil to 30 MG. Patient reports she has been taking the hydroxyzine and increased paxil with no help in her anxiety. Patient reports that she has taken alprazolam in the past and that works a lot better for her. Patient is asking if that can be sent to her pharmacy instead. Patient also reporting cough and congestion x 1 week. She reports she's been taking mucin ex and coricidin for 1 week with no relief. She reports she was exposed to someone who had influenza A that progressed into pneumonia. Patient asking if she can be prescribed anything for that. documented in this encounter Plan of Treatment Upcoming Encounters Date Type Department Care Team (Late st Contact Info) Description 05/06/2024 3:20 PM CDT [facility] Visit [facility] [address] [place] [address] Isa Flor, REGIONAL EHS MANAGER-COOKER PROCESS CHEESE [address] [place] [address] 08/17/2024 1:00 PM CDT Office Visit [facility] [address] [place] [address] Woody Rodrigues DO [address] [place] [address] documented as of this encounter Visit Diagnoses Not on filedocumented in this encounter Care Teams Knife Blade Polisher Relationship Specialty Start Date End Date Woody Rodrigues DO [address] [place] [address] PCP - Attributed-[facility] 12/19/23 Woody Rodrigues DO [address] [place] [address] PCP - Attributed-[facility] ST[facility] P4P 01/18/24 Woody Rodrigues DO [address] [place] [address] PCP - General Family Medicine 03/02/24 documented as of this encounter
--- NOTE | 2024-05-04 19:23 | ECG_ITS ---
Test Date: 2024-05-04 19:29:42 Measurements Intervals [place] Rate: 81 P: 59 MD: 147 QRS: 30 QRSD: 103 T: 65 QT: 310 QTc: 361 Interpretive Statements SINUS RHYTHM POSSIBLE LATERAL MYOCARDIAL INFARCTION , PROBABLY OLD [30 ms Q WAVE IN I/aVL/V5/V6] ARTIFACT LIMITS INTERPRETATION ABNORMAL ECG No previous ECG available for comparison Electronically Signed On 05-05-2024 12:16:15 CDT by Jasson Romero M.D.
[2024-05-04 19:48] LABS: Basophils Percent Auto 0.1 % (0.2-1.2); Hematocrit 35.9 % (37.0-47.0); Hemoglobin 11.4 g/dL (12.0-15.0); Immature Granulocyte Absolute 0.05 K/mm3 (0.00-0.031); Immature Granulocyte Percent A 0.4 % (0-0.5); Lymphocytes Percent Auto 11.6 % (18.3-44.2); Mean Corpuscular HGB Conc 31.8 g/dl (32-36); Mean Corpuscular Hemoglobin 28.4 pg (26-34); Mean Corpuscular Volume 89.3 fl (80-100); Mean Platelet Volume 9.1 fl (7.4-10.4); Neutrophils Absolute Auto 11.1 K/mm3 (1.3-6.7); Neutrophils Percent Auto 80.9 % (45.5-73.1); Platelet Count Result 200 k/mm3 (150-375); Red Blood Count 4.02 M/mm3 (4.2-5.4); Red Cell Distribution Width 15.6 % (11.5-14.5); White Blood Count 13.8 K/mm3 (4.5-10.0)
[2024-05-04 19:57] LABS: Alanine Aminotransferase 20 U/L (6-35); Albumin Level 4.1 g/dL (3.5-5.1); Alkaline Phosphatase 86 U/L (38-126); Anion Gap 10 mmol/L (4-12); Aspartate Amino Transferase 21 U/L (14-36); Bilirubin,Total 0.5 mg/dL (0.2-1.3); Blood Urea Nitrogen 23 mg/dL (7-17); Calcium 9.7 mg/dL (8.4-10.2); Carbon Dioxide 27 mmol/L (22-30); Chloride 97 mmol/L (98-107); Estimated CRCL calculation 52 ml/min; Estimated Glomerular Filt Rate 53; Glucose 133 mg/dL (65-110); Potassium 5.1 mmol/L (3.4-5.0); Sodium 134 mmol/L (137-145)
--- NOTE | 2024-05-04 20:03 | PC.NURSE ---
Unable to obtain EKG at time of order due to pt shivering/ shaking. Attempted x2
--- OUTSIDE RECORDS SUMMARY | 2024-05-04 20:04 | XMS_ITS | Encounter Summary ---
Author Organization [facility] Address [address] [facility] [place] [address] Care Team Providers Care Orthopedic Physician Assistant Name Role Phone Rodrigues, Woody DO Unavailable Rodrigues, Woody DO Unavailable Rodrigues, Woody DO Primary Care Provider [phone] Reason for Referral * Radiology Services (Routine) - Pending Review Specialty Diagnoses / Procedures Referred By Contac t Referred To Contact Mammography Diagnoses Abnormal findings on diagnostic imaging of breast Procedures Mammo Right Diagnostic W Rebecca Oscar APRN-CNP [address] [place] [address] [facility] [address] [address] Referral ID Status Reason Start Date Expiration Date V isits Requested Visits Authorized [id number] Pending Review 03/15/2024 03/15/2025 1 1 Reason for Visit * Radiology Services (Routine) - Pending Review Specialty Diagnoses / Procedures Referred By Contac t Referred To Contact Mammography Diagnoses Abnormal findings on diagnostic imaging of breast Procedures Mammo Right Diagnostic W Rebecca Oscar APRN-CNP [address] [place] [address] [facility] [address] [address] Referral ID Status Reason Start Date Expiration Date V isits Requested Visits Authorized [id number] Pending Review 03/15/2024 03/15/2025 1 1 Encounter Details Date Type Department Care Team (Latest Contact Info) Description 05/03/2024 8:47 AM CDT Hospital Encounter [facility] Breast [facility] [address] [address] Rebecca Corea, BRICK AND BLOCKER AID LABOR-[facility] [address] [place] [address] Discharge Disposition: Home or Self Care Social [...] Description 05/06/2024 3:20 PM CDT Office Visit [facility] 2023 [place] [address] ChachoIsa Debbie, BRICK AND BLOCKER AID LABOR-SCREEN PRINTING CLOTH SPREADER [address] [place] [address] 08/17/2024 1:00 PM CDT Office Visit [facility] [address] [place] [address] Woody Rodrigues DO [address] [place] [address] documented as of this encounter Procedures Procedure [...] RIGHT breast was performed by a trained director of mechanical engineering and by Dr. Qureshi. BREAST PARENCHYMAL COMPOSITION: [...] 11 cm from the nipple. Rebecca Corea BRICK AND BLOCKER AID LABOR-SCREEN PRINTING CLOTH SPREADER MAMMO ORDERAB LES documented in this encounter Visit Diagnoses Diagnosis Abnormal findings on diagnostic imaging of breast Other (abnormal) findings on radiological examination of breast documented in this encounter Care Teams Orthopedic Physician Assistant Relationship Specialty Start Date End Date Woody Rodrigues DO [address] [place] [address] PCP - Attributed-[facility] 12/19/23 Woody Rodrigues DO [address] [place] [address] PCP - Attributed-[facility] P4P 01/18/24 Woody Rodrigues DO [address] [place] [address] PCP - General Family Medicine 03/02/24 documented as of this encounter
--- OUTSIDE RECORDS SUMMARY | 2024-05-04 20:04 | XMS_ITS | Encounter Summary ---
Author Organization [facility] Address [address] [facility] [place] [address] Care Team Providers Care Career And Technology Education Teacher Name Role Phone Woody Rodrigues DO Unavailable Woody Rodrigues DO Unavailable Woody Rodrigues DO Primary Care Provider [phone] Reason for Visit * Reason Onset Date Comments Cough 05/04/2024 Medication Problem 05/04/2024 Encounter Details Date Type Department Care Team (Late st Contact Info) Description 05/04/2024 Telephone [facility] Medical [facility] - Family Medicine [address] [place], [place] [id number] Bertha Pisano RN Cough; Medication Problem Social [...] 05/04/2024 10:37 AM CDT Scheduled patient with LIVE IN HOUSEKEEPER NANNY 05/06 * Telephone Encounter - Woody Rodrigues [...] Description 05/06/2024 3:20 PM CDT Office Visit [facility] [address] [place] [address] Isa Flor, SOLE PAINTER-CPC [address] [place] [address] 08/17/2024 1:00 PM CDT Office Visit [facility] [address] [place] [address] Woody Rodrigues DO [address] [place] [address] documented as of this encounter Visit Diagnoses Not on filedocumented in this encounter Care Teams Career And Technology Education Teacher Relationship Specialty Start Date End Date Woody Rodrigues DO [address] [place] [address] PCP - Attributed-[facility] 12/19/23 Woody Rodrigues DO [address] [place] [address] PCP - Attributed-[facility] ST[facility] P4P 01/18/24 Woody Rodrigues DO [address] [place] [address] PCP - General Family Medicine 03/02/24 documented as of this encounter
--- OUTSIDE RECORDS SUMMARY | 2024-05-04 20:04 | XMS_ITS | Encounter Summary ---
Author Organization [facility] Address [address] [place] [address] Care Team Providers Care Proposal Development Manager Name Role Phone Rodrigues, Woody DO Unavailable Rodrigues, Woody DO Unavailable Rodrigues, Woody DO Primary Care Provider [phone] Reason for Referral * Radiology Services (Routine) - Pending Review Specialty Diagnoses / Procedures Referred By Contac t Referred To Contact Ultrasound Diagnoses Abnormal findings on diagnostic imaging of breast Procedures US BREAST RIGHT LTD Rebecca Corea APRN-SHOULDER SAWYER [address] [place] [address] [facility] [address] [place] [address] Referral ID Status Reason Start Date Expiration Date V isits Requested Visits Authorized [id number] Pending Review 03/15/2024 03/15/2025 1 1 Reason for Visit * Radiology Services (Routine) - Pending Review Specialty Diagnoses / Procedures Referred By Conthollie t Referred To Contact Ultrasound Diagnoses Abnormal findings on diagnostic imaging of breast Procedures US BREAST RIGHT LTD Rebecca Corea APRN-SHOULDER SAWYER [address] [place] [address] [facility] [address] [facility] [address] [place] [address] Referral ID Status Reason Start Date Expiration Date V isits Requested Visits Authorized [id number] Pending Review 03/15/2024 03/15/2025 1 1 Encounter Details Date Type Department Care Team (Latest Contact Info) Description 05/03/2024 8:48 AM CDT - 05/03/2024 11:59 PM CDT Hospital Encounter [facility] Imaging Services - Ultrasound [address] [facility] [address] [place] [address] Rebecca Corea, SILK SOAKER-SHOULDER SAWYER [address] [place] [address] Discharge Disposition: Home or Self [...] Description 05/06/2024 3:20 PM CDT Office Visit [facility] [address] [place] [address] Isa Flor Debbie, SILK SOAKER-SHOULDER SAWYER [address] [place] [address] 08/17/2024 1:00 PM CDT Office Visit [facility] [address] [place] [address] Woody Rodrigues DO [address]23 [place] [address] documented as of this encounter Procedures Procedure [...] RIGHT breast was performed by a trained pesticide applicator and by Dr. Qureshi. BREAST PARENCHYMAL COMPOSITION: [...] 11 cm from the nipple. Rebecca Corea SILK SOAKER-SHOULDER SAWYER US ORDERABLES documented in this encounter Visit Diagnoses Diagnosis Abnormal findings on diagnostic imaging of breast Other (abnormal) findings on radiological examination of breast documented in this encounter Care Teams Proposal Development Manager Relationship Specialty Start Date End Date Woody Rodrigues DO [address] [place] [address] PCP - Attributed-[facility] 12/19/23 Woody Rodrigues DO [address] [place] [address] PCP - Attributed-[facility] P4P 01/18/24 Woody Rodrigues DO [address] [place] [address] PCP - General Family Medicine 03/02/24 documented as of this encounter
--- OUTSIDE RECORDS SUMMARY | 2024-05-04 20:04 | XMS_ITS | Encounter Summary ---
Author Organization [facility] Address [address] [place] [address] Care Team Providers Care Development Eng Name Role Phone Woody Rodrigues DO Unavailable Woody Rodrigues DO Unavailable Woody Rodrigues DO Primary Care Provider [phone] Encounter Details Date Type Department Care Team [...] Description 05/06/2024 3:20 PM CDT Office Visit [facility] - Family Medicine [address] [place] [address] Isa Flor, ROBERTO-KIT [address] [place] [address] 08/17/2024 1:00 PM CDT Office Visit [facility] Family Medicine [address] [place] [address] Woody Rodrigues DO [address] [place] [address] documented as of this encounter Visit Diagnoses Not on filedocumented in this encounter Care Teams Development Eng Relationship Specialty Start Date End Date Woody Rodrigues DO [address] [place] [address] PCP - Attributed-[facility] 12/19/23 Woody Rodrigues DO [address] [place] [address] PCP - Attributed-[facility] P4P 01/18/24 Woody Rodrigues DO [address] [place] [address] PCP - General Family Medicine 03/02/24 documented as of this encounter
--- OUTSIDE RECORDS SUMMARY | 2024-05-04 20:04 | XMS_ITS | Clinical Summary ---
Author Organization [facility] Address [address] [place] [address] Care Team Providers Care Renovation Plant Supervisor Name Role Phone Rodrigues, Woody DO Unavailable Rodrigues, Woody DO Unavailable Rodrigues, Woody DO Primary Care Provider [phone] Source Comments [facility],non-owned Affiliates and Associated Physician Practices is amultiple site organization consisting of ambulatory clinics and hospital sitesin [place], [place], [place] and [place]. This disclosure is being madepursuant to the Care Everywhere program and may not contain all information available regarding this patient. Last updated 17.[facility] Allergies Active Allergy Reactions Criticality Noted Date [...] Care Team Description 05/04/2024 Travel 05/04/2024 Telephone [facility] - Family Medicine [address] [place] [address] Bertha Pisano, MARCEL Cough; Medication Problem 05/03/2024 8:48 AM CDT - 05/03/2024 11:59 PM CDT Hospital Encounter [facility] Imaging Services - Ultrasound [address] [place] [address] [address] [place] [address] Rebecca Corea, LIQUID YEAST SUPERVISOR-HYPOID GEAR TESTER Discharge Disposition: Home or Self Care 05/03/2024 8:47 AM CDT Hospital Encounter [facility] Breast Care [address] [place] [address] [address] [place] [address] Rebecca Corea, LIQUID YEAST SUPERVISOR-HYPOID GEAR TESTER Discharge Disposition: Home or Self Care 04/29/2024 Orders Only [facility] [address] [place] [address] Woody Rodrigues DO FOZIA (generalized anxiety disorder) 04/29/2024 Telephone [facility] [address] [place] [id number] Woody Rodrigues DO Anxiety 03/24/2024 Patient Outreach [facility] - Care Coordination [address] [place] [address] Raya Tenorio Outreach Preventive Care 03/12/2024 2:57 PM DOCUMENTATION MANAGER - 03/12/2024 11:59 PM DOCUMENTATION MANAGER Hospital Encounter [facility] Breast Care [address] [facility] [address] [place] [address] Discharge Disposition: Home or Self Care 03/12/2024 2:57 PM DOCUMENTATION MANAGER - 03/12/2024 11:59 PM DOCUMENTATION MANAGER Hospital Encounter [facility] Breast Care [address] [facility] [address] [place] [address] Discharge Disposition: Home or Self Care 03/12/2024 2:56 PM DOCUMENTATION MANAGER Hospital Encounter [facility] Imaging Services - Radiology [address] [facility] [address] [place] [address] Discharge Disposition: Home or Self Care 03/05/2024 Orders Only [facility] [address] [place] [address] Woody Rodrigues DO FOZIA (generalized anxiety disorder) 03/05/2024 Telephone [facility] [address] [place] [id number] Woody Rodrigues DO Medication Problem 03/02/2024 2:20 PM DOCUMENTATION MANAGER Office Visit [facility] [address] [place] [address] Woody Rodrigues DO Annual physical exam (Primary Dx); Prediabetes; Obesity, morbid; Systemic lupus erythematosus, unspecified SLE type, unspecified [...] Comments Blood Pressure 100/62 03/02/2024 2:36 PM DOCUMENTATION MANAGER Pulse 74 03/02/2024 2:36 PM DOCUMENTATION MANAGER Temperature 36.6 C (97.9 F) 03/02/2024 2:36 PM DOCUMENTATION MANAGER Respiratory Rate 18 08/19/2013 12:58 PM CDT Oxygen Saturation 98% 03/02/2024 2:36 PM DOCUMENTATION MANAGER Inhaled Oxygen Concentration - - Weight 103 kg (227 lb) 03/12/2024 3:08 PM DOCUMENTATION MANAGER Height 162.6 cm (5' 4 ) 03/12/2024 3:08 PM DOCUMENTATION MANAGER Body Mass Index 38.96 03/12/2024 3:08 PM DOCUMENTATION MANAGER Plan of Treatment Upcoming Encounters Date Type Department Care Team (Late st Contact Info) Description 05/06/2024 3:20 PM CDT Office Visit [facility] - Family Medicine [address] [place] [address] Isa Flor, LIQUID YEAST SUPERVISOR-HYPOID GEAR TESTER [address] [place] [phone] 08/17/2024 1:00 PM CDT Office Visit [facility] - Family Medicine [address] [place] [address] Woody Rodrigues DO [address] [place] [phone] Health Maintenance Due Date Last Done Comments [...] DENSITY AXIAL SKELETON Routine 03/12/2024 3:51 PM DOCUMENTATION MANAGER Asymptomatic postmenopausal status XR CHEST 2VW Routine 03/12/2024 3:36 PM DOCUMENTATION MANAGER Lumbar pain Systemic lupus erythematosus (SLE) in adult (HCC) Ankylosing spondylitis, unspecified site of spine (HCC) High risk medications (not anticoagulants) long-term use MAMMO BILAT SCREENING W RILEY Routine 03/12/2024 3:10 PM DOCUMENTATION MANAGER Encounter for screening mammogram for breast cancer TSH REFLEX FREE T4 Routine 03/02/2024 3: 26 PM DOCUMENTATION MANAGER Annual physical exam HEMOGLOBIN A1C Routine 03/02/2024 3:26 PM DOCUMENTATION MANAGER Annual physical exam LIPID PROFILE Routine 03/02/2024 3:26 PM DOCUMENTATION MANAGER Annual physical exam COMPREHENSIVE METABOLIC PANEL Routine 03/02/2024 3:26 PM DOCUMENTATION MANAGER Annual physical exam CBC W AUTO DIFFERENTIAL Routine 03/02/2024 3:26 PM DOCUMENTATION MANAGER Annual physical exam from Last 3 Months [...] RIGHT breast was performed by a trained application trainer and by Dr. Qureshi. BREAST PARENCHYMAL COMPOSITION: [...] 11 cm from the nipple. Rebecca Corea LIQUID YEAST SUPERVISOR-HYPOID GEAR TESTER US ORDERABLES * Mammo Right Diagnostic W [...] RIGHT breast was performed by a trained application trainer and by Dr. Qureshi. BREAST PARENCHYMAL COMPOSITION: [...] 11 cm from the nipple. Rebecca Corea LIQUID YEAST SUPERVISOR-HYPOID GEAR TESTER MAMMO ORDERAB LES * DEXA BONE DENSITY AXIAL SKELETON (03/12/2024 3:51 PM DOCUMENTATION MANAGER) Anatomical Region Laterality Modality Mammography 03/12/2024 4:08 PM DOCUMENTATION MANAGER Narrative 03/12/2024 4:09 PM DOCUMENTATION MANAGER BONE MINERAL DENSITY STUDY INDICATION: Ovarian failure [...] MD on 03/12/2024 4:09 PM Rebecca Corea LIQUID YEAST SUPERVISOR-HYPOID GEAR TESTER DEXA ORDERABL ES * XR Chest 2Vw (03/12/2024 3:36 PM DOCUMENTATION MANAGER) Anatomical Region Laterality Modality Chest Radiographic Nella ging 03/12/2024 3:44 PM DOCUMENTATION MANAGER Impressions 03/12/2024 3:44 PM DOCUMENTATION MANAGER IMPRESSION: No acute cardiopulmonary abnormalities. > Interpreting Provider: Gissel Ogden MD on 03/12/2024 3:44 PM Narrative 03/12/2024 3:44 PM DOCUMENTATION MANAGER PROCEDURE: XR CHEST 2VW DATE/TIME OF EXAM: 03/12/2024 3:36 PM CLINICAL INFORMATION: None relevant/not provided if blank. Indication: M54.50: Low back pain, unspecified M32.9: Systemic lupus erythematosus, unspecified ([facility]) M45.9: Ankylosing spondylitis of unspecified sites in spine ([facility]) Z79.899: Other bed bug exterminator (current) drug therapy Additional History: COMPARISON: None. [...] pain, unspecified M32.9: Systemic lupus erythematosus, unspecified ([facility]) M45.9: Ankylosing spondylitis of unspecified sites in spine ([facility]) Z79.899: Other usp (current) drug therapy Additional History: COMPARISON: None. [...] MD on 03/12/2024 3:44 PM Lisa Garcia APRN-HYPOID GEAR TESTER DIAGNOSTIC IMAG ING ORDERABLES * Mammo Bilat Screening W Riley (03/12/2024 3:10 PM DOCUMENTATION MANAGER) Anatomical Region Laterality Modality Breast Bilateral Mammography 03/12/2024 3:58 PM DOCUMENTATION MANAGER Impressions 03/12/2024 4:06 PM DOCUMENTATION MANAGER IMPRESSION: Question right breast focal asymmetry ASSESSMENT: BIRADS Category 0: Incomplete - Needs additional imaging evaluation. RECOMMENDATION: Right breast diagnostic mammography and possible targeted ultrasound. Thank you for allowing us to participate in the care of your patient. [facility] Breast Care utilizes [employer] as a reminder system to notify patients of their next recommended mammogram. > Interpreting Provider: Isa Delvalle MD on 03/12/2024 4:06 PM Narrative 03/12/2024 4:06 PM DOCUMENTATION MANAGER EXAMINATION: Digital screening mammogram. Low-dose full-field digital [...] 27 and MLO slice 7. Rebecca Corea LIQUID YEAST SUPERVISOR-HYPOID GEAR TESTER MAMMO ORDERAB LES * TSH REFLEX FREE T4 (03/02/2024 3:26 PM DOCUMENTATION MANAGER) TSH 1.561 0.350 - 4.940 uIU/mL [facility] ACCOUNT BILL Blood BLOOD SPECIMEN / Unknown 03/02/2024 3:26 PM DOCUMENTATION MANAGER 03/02/2024 Narrative [facility] ACCOUNT BILL - 03/02/2024 11:06 PM DOCUMENTATION MANAGER Performed at: [address] [place] [address] [facility] [address] [place], [place] [id number] Clerical Methods Analyst: Dequan Toussaint [facility], Phone: [phone] Woody Rodrigues DO LAB - CHEMISTRY MAICO GERARD [facility] ACCOUNT BILL [address] [place] [address] * HEMOGLOBIN A1C (03/02/2024 3:26 PM DOCUMENTATION MANAGER) Hemoglobin A1c 5.6 <5.7 % [facility] [...] (HbF) exceeds 5% in the specimen. The Connecture Alinity assay for the measurement of HbA1c is a [facility] Glycohemoglobin Standardization Program (NGSP) certi fied method. Blood BLOOD SPECIMEN / Unknown 03/02/2024 3:26 PM DOCUMENTATION MANAGER 03/02/2024 Narrative [facility] ACCOUNT BILL - 03/02/2024 11:06 PM DOCUMENTATION MANAGER Performed at: [address] [place] [id number] [place] [address] , [place], [place] [id number] Clerical Methods Analyst: Dequan Toussaint [facility], Phone: [phone] Woody Rodrigues DO LAB - CHEMISTRY MAICO GERARD [facility] ACCOUNT BILL [address] [place] [address] * (ABNORMAL) CBC WITH DIFFERENTIAL (03/02/2024 3:26 PM DOCUMENTATION MANAGER) Pathologist [facility] WBC 3.3(L) 4.0 - 10.7 x10E9/L [facility] [...] BLOOD SPECIMEN / Unknown 03/02/2024 3:26 PM DOCUMENTATION MANAGER 03/02/2024 Narrative [facility] ACCOUNT BILL - 03/02/2024 11:06 PM DOCUMENTATION MANAGER Performed at: [address] [place] [address] [facility] , [place], [place] [id number] Clerical Methods Analyst: Dequan Toussaint [facility], Phone: [phone] Woody Rodrigues DO LAB - HEMATOLOGY ORD ERABLES [facility] ACCOUNT BILL [address] [place] [address] * (ABNORMAL) COMPREHENSIVE METABOLIC PANEL (03/02/2024 3:26 PM DOCUMENTATION MANAGER) [facility] Glucose 92 70 - 99 mg/dL [facility] [...] BLOOD SPECIMEN / Unknown 03/02/2024 3:26 PM DOCUMENTATION MANAGER 03/02/2024 Narrative [facility] ACCOUNT BILL - 03/02/2024 11:06 PM DOCUMENTATION MANAGER Performed at: [address] [place] [address] , [place], [place] [id number] Clerical Methods Analyst: Dequan Toussaint [facility], Phone: [phone] Woody Rodrigues DO LAB - CHEMISTRY MAICO GERARD [facility] ACCOUNT BILL [address] [place] [address] * (ABNORMAL) LIPID PROFILE (LIPID PANEL) (03/02/2024 3:26 PM DOCUMENTATION MANAGER) Cholesterol 223(H) <200 mg/dL [facility] ACCOUNT BILL Triglycerides 91 <150 mg/dL [facility] ACCOUNT BILL HDL Cholesterol 58 >40 mg/dL [facility] ACCOUNT BILL VLDL Calculated 18 <=30 mg/dL [facility] ACCOUNT BILL LDL Calculated 147(H) <130 mg/dL [facility] ACCOUNT BILL Blood BLOOD SPECIMEN / Unknown 03/02/2024 3:26 PM DOCUMENTATION MANAGER 03/02/2024 Narrative [facility] ACCOUNT BILL - 03/02/2024 11:06 PM DOCUMENTATION MANAGER Performed at: [address] [place] [address] [facility] [place] [id number] Clerical Methods Analyst: Dequan Toussaint [facility], Phone: [phone] Woody Rodrigues DO LAB - CHEMISTRY MAICO Ayala Organization Address City/State/ZIP Co de Phone Number [facility] ACCOUNT BILL [address] [place] [address] from Last 3 Months Care Teams Renovation Plant Supervisor Relationship Specialty Start Date End Date Woody Rodrigues DO [address] [place] [address] PCP - Attributed-[facility] [place] 12/19/23 Woody Rodrigues DO [address] [place] [phone] PCP - Attributed-[facility] 01/18/24 Woody Rodrigues DO [address] [place] [phone] PCP - General Family Medicine 03/02/24
[2024-05-04] MEDS: LACTATED RINGERS 1,000 ML 999 ML IV CONT (20:37)
[2024-05-04 20:49] LABS: Influenza A QL RT-PCR Positive (Negative); Influenza B QL RT-PCR Negative (Negative); RSV RNA, RT-PCR Negative (Negative); SARS-CoV-2 RNA PCR Negative (Negative)
[2024-05-04 20:55] LABS: Add Urine Microscopic? YES; Appearance Urine Clear (Clear); Bacteria Urine None Seen /hpf; Bilirubin Urine Negative (Negative); Blood Urine Negative (Negative); Color Urine Yellow (Yellow); Glucose Urine UA Negative (Negative); Ketones Urine Negative (Negative); Leukocyte Esterase Ur Negative LEU/UL (Negative); Nitrate Urine Negative (Negative); Protein Urine Trace mg/dL (Negative); RBC Urine 0-2 /hpf (0-2); Specific Grav Ur 1.017 (1.001-1.035); Squamous Epithelial Cell Urine Occasional /hpf (Few); Urobilinogen Urine 0.2 mg/dL (<2.0); WBC Urine 0-5 /hpf (0-3)
--- NOTE | 2024-05-04 21:10 | ED.GENADULT ---
HPI - General Adult General Chief complaint: Weakness Stated complaint: Flu like S/Sx x 1 week-Hx Lupus Time Seen by Provider: 05/04/24 19:43 History of Present Illness HPI narrative: 68-year-old female presenting to the emergency department for evaluation for increased generalized weakness. Patient states he began developing flu-like symptoms when she was in the [place] and these symptoms started on 04/26. Patient states since coming home she has had increased anxiety and worsening symptoms. Patient states she did not take her methotrexate when she was in the [place] with has since been back on her methotrexate and prednisone Related Data Home Medications ?Medication ?Instructions ?Recorded ?Confirmed ?Last Taken ?Type hydrochlorothiazide 12.5 mg capsule 12.5 mg PO DAILY 06/09/20 11/16/21 Unknown History lisinopril 2.5 mg tablet 2.5 mg PO DAILY 06/09/20 11/16/21 Unknown History lovastatin 10 mg tablet 10 mg PO DAILY 06/09/20 11/16/21 Unknown History paroxetine HCl 20 mg tablet 20 mg PO DAILY 11/16/21 11/16/21 Unknown History diclofenac sodium 25 mg 25 mg PO BID PRN 01/24/22 Unknown History tablet,delayed release hydroxychloroquine 200 mg tablet 200 mg PO BID 01/28/24 Unknown History pantoprazole 40 mg tablet,delayed 40 mg PO QAM 01/28/24 Unknown History release Allergies Allergy/AdvReac Type Severity Reaction Status Date / Time erythromycin base Allergy Unknown Palpitation Verified 05/04/24 18:40 s Review of Systems Review of Systems: All systems reviewed & are unremarkable except as noted in HPI and below PMFSH Past Medical History Medical History Lupus Obstructive sleep apnea History of 3 spontaneous abortions Anxiety Depression High cholesterol Hypertension Surgical History Surgical History History of colonoscopy with polypectomy S/P conization of cervix x2 S/P dilation and curettage x3 S/P breast biopsy History of 2 sections Total knee replacement status Family History Family History Father Hypertension Grandparent Family history of malignant neoplasm of cervix Sibling Family history of malignant neoplasm of breast in first degree relative Social History Social History Smoking status: Never smoker Second hand tobacco smoke exposure: No Alcohol intake: current Exam Narrative: APPEARANCE: Well appearing, no pain, no distress, well-nourished. HEAD: normocephalic, atraumatic. EYES: PERRLA/EOMI, conjunctivae clear. NOSE: Normal no drainage EARS:TMS clear with good light reflex. THROAT: Pharynx clear, no exudate. NECK: Supple. No adenopathy, no masses. RESPIRATORY: Airway patent, respirations nonlabored. Clear to auscultation bilaterally, no rales, rhonchi, wheezing. CARDIOVASCULAR: Regular rate and rhythm without murmurs rubs or gallops. ABDOMINAL: Soft, nontender, nondistended, normal bowel sounds MUSCULOSKELETAL: Moves all extremities. Strength/ROM intact, No edema, No calf tenderness. NEURO: Alert. Cranial nerves II through XII intact. Good gait. Good coordination SKIN: Warm, dry. Normal Color PSYCHIATRIC: Flat affect Course Vital Signs Vital signs: Vital Signs Temperature 98.3 F 05/04/24 18:43 Pulse Rate 82 05/04/24 18:43 Respiratory Rate 16 05/04/24 18:43 Blood Pressure 106/60 05/04/24 18:43 Pulse Oximetry 98 05/04/24 18:43 Temperature 98.6 F 05/04/24 19:34 Pulse Rate 94 05/04/24 20:45 Respiratory Rate 15 05/04/24 19:34 Blood Pressure 115/65 05/04/24 20:45 Pulse Oximetry 97 05/04/24 20:01 Oxygen Delivery Room Air 05/04/24 20:01 Medical Decision Making [facility] Narrative Medical decision making narrative: 60-year-old female presents emergency department for evaluation for flu-like symptoms. Patient did test positive for influenza A. Chest x-ray showed no acute cardiopulmonary abnormality. Patient was afebrile but does have a leukocytosis of 13.8 and hemoglobin 11.4. Prior to IV fluids patient had a sodium of 134, potassium of 5.1 and a creatinine of 1.03. Patient was not significantly orthostatic on vital signs. UA was negative for infection. Patient was positive for influenza A negative for influenza B RSV and for COVID. Patient's primary complaint to the emergency department was persistent anxiety. Patient has previously been on Xanax as prescribed by her primary care physician. Patient states she now takes paroxetine. Patient was recently prescribed hydroxyzine but states this is not helping. Patient was treated with 0.5 mg of IV Ativan in emergency department to help with her anxiety acutely but patient was encouraged to have close follow-up with primary care physician to received longer-acting anxiolytics. Differential Diagnosis Differential Diagnosis: Pneumonia, COVID, RSV, influenza, dehydration, orthostatic hypotension, anxiety, depression Vital Signs Vital Signs: Vital Signs Temperature 98.3 F 05/04/24 18:43 Pulse Rate 82 05/04/24 18:43 Respiratory Rate 16 05/04/24 18:43 Blood Pressure 106/60 05/04/24 18:43 Pulse Oximetry 98 05/04/24 18:43 Temperature 98.6 F 05/04/24 19:34 Pulse Rate 94 05/04/24 20:45 Respiratory Rate 15 05/04/24 19:34 Blood Pressure 115/65 05/04/24 20:45 Pulse Oximetry 97 05/04/24 20:01 Oxygen Delivery Room Air 05/04/24 20:01 Lab Data Lab results reviewed: Yes I reviewed the patient's lab results. 05/04/24 19:42 05/04/24 19:42 Labs: Lab Results 05/04/24 05/04/24 Range/Units 19:42 20:42 WBC 13.8 H (4.5-10.0) K/mm3 RBC 4.02 L (4.2-5.4) M/mm3 Hgb 11.4 L (12.0-15.0) g/dL Hct 35.9 L (37.0-47.0) % MCV 89.3 (80-100) fl MCH 28.4 (26-34) pg MCHC 31.8 L (32-36) g/dl RDW 15.6 H (11.5-14.5) % Plt Count 200 (150-375) k/mm3 MPV 9.1 (7.4-10.4) fl Immature Gran % (Auto) 0.4 (0-0.5) % Neut % (Auto) 80.9 H (45.5-73.1) % Lymph % (Auto) 11.6 L (18.3-44.2) % [place] % (Auto) 7.0 (2.6-8.5) % Eos % (Auto) 0.0 (0-4.4) % Baso % (Auto) 0.1 L (0.2-1.2) % Lymph # (Auto) 1.60 (0.9-3.2) K/mm3 [place] # (Auto) 1.0 H (0.1-0.6) K/mm3 Eos # (Auto) 0.0 (0-0.3) K/mm3 Baso # (Auto) 0.0 (0.0-0.1) K/mm3 Abs Immat Gran (auto) 0.05 H (0.00-0.031) K/mm3 Absolute Neuts (auto) 11.1 H (1.3-6.7) K/mm3 Absolute Nucleated RBC 0.000 (0.0-0.012) K/mm3 Nucleated RBC % 0.0 (0.0-0.2) % Sodium 134 L (137-145) mmol/L Potassium 5.1 H (3.4-5.0) mmol/L Chloride 97 L (98-107) mmol/L Carbon Dioxide 27 (22-30) mmol/L Anion Gap 10 (4-12) mmol/L BUN 23 H (7-17) mg/dL Creatinine 1.03 H (0.7-1.0) mg/dL Estim Creat Clear Calc 52 ml/min Estimated GFR 53 L (59 - ) Glucose 133 H (65-110) mg/dL Calcium 9.7 (8.4-10.2) mg/dL Total Bilirubin 0.5 (0.2-1.3) mg/dL AST 21 (14-36) U/L ALT 20 (6-35) U/L Alkaline Phosphatase 86 (38-126) U/L Total Protein 8.0 (6.3-8.2) g/dL Albumin 4.1 (3.5-5.1) g/dL Urine Color Yellow (Yellow) Urine Appearance Clear (Clear) Urine pH 5.0 (5.0-9.0) Ur Specific [place] 1.017 (1.001-1.035) Urine Protein Trace (Negative) mg/dL Urine Glucose (UA) Negative (Negative) mg/dL Urine Ketones Negative (Negative) mg/dL Ur Blood (Man) Negative (Negative) Urine Nitrate Negative (Negative) Urine Bilirubin Negative (Negative) Urine Urobilinogen 0.2 (<2.0) mg/dL Leukocyte Esterase Rfl Negative (Negative) NICOLA/UL Urine RBC 0-2 (0-2) /hpf Urine WBC 0-5 (0-3) /hpf Ur Squamous Epith Cells Occasional (Few) /hpf Urine Bacteria None seen /hpf Urine Casts 3-5 Influenza A (RT-PCR) Positive A (Negative) Influenza B (RT-PCR) Negative (Negative) RSV (RT-PCR) Negative (Negative) SARS-CoV-2 RNA (RT-PCR) Negative (Negative) Imaging Data Radiologist's impression: Impressions Chest X-Ray 05/04/24 20:01 IMPRESSION: No focal infiltrate or effusion. Discharge Plan Discharge Clinical Impression: Influenza A Patient Disposition: Home, Self-Care Condition: Stable Instructions: Antibiotic Form, Influenza (ED) Additional Instructions: Antibiotics as directed until completed. Albuterol inhaler for shortness of breath and Tessalon Perles for cough. Home medications as directed. Have close follow-up with your primary care physician. Patient Language: Nicaraguan Prescriptions: New benzonatate 100 mg capsule 100 mg PO TID PRN (Reason: cough) Qty: 14 0RF albuterol sulfate 90 mcg/actuation HFA aerosol inhaler 1 puff inhalation QID Qty: 6.7 0RF levofloxacin 500 mg tablet 500 mg PO DAILY 7 Days Qty: 7 0RF No Action paroxetine HCl 20 mg tablet 20 mg PO DAILY ibuprofen 600 mg tablet 600 mg PO TID PRN (Reason: fever or pain) Qty: 30 0RF lovastatin 10 mg tablet 10 mg PO DAILY hydrochlorothiazide 12.5 mg capsule 12.5 mg PO DAILY lisinopril 2.5 mg tablet 2.5 mg PO DAILY hydroxychloroquine 200 mg tablet 200 mg PO BID pantoprazole 40 mg tablet,delayed release (DR/EC) 40 mg PO QAM diclofenac sodium 25 mg tablet,delayed release (DR/EC) 25 mg PO BID PRN Follow-up/Referrals: UNKNOWN,DOCTOR [Primary Care Provider] -
[2024-05-04] MEDS: LORazepam INJ (*CRX) 2 MG/ML VIAL 0.5 MG IV PUSH (21:30)
[2024-05-04] MEDS: levoFLOXacin 750 MG TABLET PO (21:32)
== END 2024-05-04 22:58 | disposition home or self-care (01) ==
PROVIDERS: Emergency Medicine; Emergency Provider Emergency Medicine
DX: J10.1 Influenza due to other identified influenza virus with other respiratory manifestations (principal); Z20.822 Contact with and (suspected) exposure to COVID-19; I10 Essential (primary) hypertension; E78.00 Pure hypercholesterolemia, unspecified; G47.33 Obstructive sleep apnea (adult) (pediatric); F41.9 Anxiety disorder, unspecified; F32.A Depression, unspecified; Z86.0100 Personal history of colon polyps, unspecified; Z96.659 Presence of unspecified artificial knee joint; Z79.899 Other long term (current) drug therapy
CPT/HCPCS: 36415; 71045; 80053; 81001; 85025; 87637; 93005; 96361; 96374; 99284; A9270; J2060; J7120